=== PATIENT | female | born 1955 | race African-American/Black ===

== ENCOUNTER 2019-02-01 04:44 | Day surgery (SDC) | payer OTHER ==
[2019-01-30 13:09] VITALS: BMI 29.5
[2019-02-01] MEDS ORDERED: BUPIVACAINE HCL/PF 0.5% (5 MG/ML) 30 ML VIAL IJ ONE ×2 (07:18→08:34)
[2019-02-01] MEDS ORDERED: LIDOCAINE HCL 1%, 10 MG/ML (20ML VIAL) ONE (07:18)
[2019-02-01] MEDS ORDERED: PROPOFOL 20 ML ONE ×2 (07:23)
[2019-02-01] MEDS ORDERED: MIDAZOLAM HCL 2 MG/2 ML SINGLE DOSE VIAL ONE (07:23)
[2019-02-01] MEDS ORDERED: SUCCINYLCHOLINE CHLORIDE 200 MG/10 ML SYRINGE ONE (07:23)
[2019-02-01] MEDS ORDERED: ceFAZolin SODIUM 1 GM VIAL ONE (08:19)
--- NOTE | 2019-02-01 08:20 | HP ---
[facility] - Chief Complaint Chief Complaint: left index finger mass - Past Medical History Allergies/Adverse Reactions: Allergies Allergy/AdvReac Type Severity Reaction Status Date / Time No Known Allergies Allergy Verified 02/01/19 06:31 - Current Medications Current Medications: Home Medications Medication Instructions Recorded Atorvastatin Ca [Lipitor] 20 mg PO DAILY 01/30/19 Hydrocodone/Acetaminophen 1 each PO Q6H #10 tablet MDD 4 02/01/19 [Hydrocodone-Acetamin 5-325 mg] Multivitamin [One-Daily 1 each PO DAILY 02/01/19 Multi-Vitamin] Barton-3S/Dha/Epa/Fish Oil [Fish 1 each PO DAILY 02/01/19 Oil Barton-3 Softgel] Satellite Physical Exam - Physical Examination Vital Signs: Vital Signs Period Temp Pulse Resp BP Sys/Rodriguez Pulse Ox Last 24 Hr 97.7 F-97.7 F 64-64 20-20 136-136/74-74 100 General Appearance: Well Nourished, Well Developed, Alert & Oriented x3 ENT: Clear Lung: Normal air movement Heart: Regular rate & rhythm Extremities: Other (left index finger- + mass, nvi) Neurological: Intact, Alert, Oriented Satellite Impression/Plan - Impression/Plan Impression: left index finger mass Operative Procedure: left index finger mass excision Date to be Performed: 02/01/19
[2019-02-01] MEDS ORDERED: ceFAZolin SODIUM 1 GM VIAL IVPB ONE (08:21)
[2019-02-01] MEDS ORDERED: LIDOCAINE HCL 1%, 10 MG/ML (20ML VIAL) NR ONE (08:33)
--- NOTE | 2019-02-01 08:55 | OP ---
Operative Note - Note: Operative Date: 02/01/19 Pre-Operative Diagnosis: left index finger mass Operation: left index finger mass excision Post-Operative Diagnosis: Same as Pre-op Surgeon: Charly Montgomery Anesthesiologist/LODGE OFFICER: Butch Burton Anesthesia: Local, MAC Specimens Removed: mass, left index finger Estimated Blood Loss (mls): 0 Drains, Volume Out (mls): 0 Blood Volume Replaced (mls): 0 Fluid Volume Replaced (mls): 300 Operative Report Dictated: Yes
[2019-02-01 09:13] VITALS: TEMP 97.4
[2019-02-01] MEDS ORDERED: oxyCODONE HCL 5 MG TABLET PO PRN (12:03)
[2019-02-01] MEDS ORDERED: ONDANSETRON 4 MG/2 ML VIAL IVPUSH PRN (12:03)
[2019-02-01] MEDS ORDERED: LACTATED RINGERS SOLUTION 1,000 ML IV SCH (12:15)
--- NOTE | 2019-02-01 13:57 | OP ---
DATE OF OPERATION: 02/01/2019 PREOPERATIVE DIAGNOSIS: Left index finger mass, likely ganglion cyst. POSTOPERATIVE DIAGNOSIS: Left index finger mass, likely ganglion cyst. PROCEDURE: Excision, mass, left index finger. SURGEON: Charly Major MD ASSISTANTS: None. ANESTHESIA: MARIN SearsMD: MAC anesthesia, local injection of 10 mL 0.5% Marcaine and 1% lidocaine mix. DRAINS: None. COMPLICATIONS: None. SPECIMEN: Mass, left index finger, likely ganglion cyst. BLOOD LOSS: None. BLOOD GIVEN: None. FLUID REPLACEMENT: 300 mL. This is a 63-year-old female with a preoperative diagnosis of a mass on the ulnar aspect of her left index finger. After extensive preoperative discussions about the potential risks, complications, alternatives, and benefits of surgery versus no-surgical treatment, the patient elected to undergo this procedure. She understands that this mass may recur at this or other locations. She may need additional treatment. The patient was brought to the operating room, peripheral IV placed, IV sedation given, 1g of IV Ancef was given. MAC anesthesia was induced. The left upper extremity was prepped and draped in sterile fashion. A midaxial incision was marked out with a marking pen and a metacarpal head block was done using 10 mL 0.5% Marcaine and 1% lidocaine mix. The entire case was done under 3.8 loupe magnification. The left upper extremity was then elevated, exsanguinated with an Esmarch bandage, and the tourniquet inflated to 250 mm Mercury. A fresh number 15 scalpel blade was utilized to cut down through the skin. Circumferential dissection was done with a sharp-tip curved iris scissors. The mass popped at one point and classic ganglion cyst-like fluid was removed. The ganglion cyst was well circumscribed and right underneath the skin. I was able to dissect it free with a fresh number 15 scalpel blade free of the subcutaneous tissue. All crossing neurovascular structures were identified and preserved. It was decapitated at its base. It was adherent to the bone/distal phalanx. The area was copiously irrigated and washed out. I did not see or feel any abnormal tissue at this point. Closure was done with single interrupted 4-0 nylon sutures. The area was then washed and dried and covered with Xeroform gauze, 4 x 4 gauze, fluffs between the fingers, Webril, and Coban. The tourniquet was taken down after a total tourniquet time of 10 minutes. There were no complications during the case. The patient tolerated the procedure quite well, was brought to the ambulatory recovery in stable condition. CHARLY MAJOR M.D. [id number]
[2019-02-01 15:38] VITALS: BP 137/85; PULSE 76
--- NOTE | 2019-02-02 18:38 | PATH ---
Surgical Pathology Report Patient Name: KIMBERLY YOUNG [facility]. Rec. #: [id number] /Age/Gender: 1955 (Age: 63) / F Account: [id number] Location: [facility] Taken: 02/01/2019 Received: 02/01/2019 Reported: 02/02/2019 Physicians: Charly Montgomery M.D. Specimen(s) Received MASS OF LEFT INDEX FINGER Clinical History Cyst mass left index finger Final Diagnosis LEFT INDEX FINGER MASS, EXCISION: CONSISTENT WITH GANGLION CYST. Electronically Signed Shirin Posada M.D. Gross Description Received in formalin labeled "left index finger mass," is a 0.8 x 0.5 x 0.1 cm malcolm portion of soft tissue. The specimen is bisected and entirely submitted in one cassette. /02/01/201902/01/2019
== END 2019-02-01 10:35 | disposition home or self-care (01) ==
LOC: JASU-SURG 04:44
PROVIDERS: ATTEND Orthopaedic Surgery
PROC: 0LB80ZZ Excision of Left Hand Tendon, Open Approach (ICD-10-PCS; principal; 2019-02-01 08:00)
DX: M67.442 Ganglion, left hand (principal)
CPT/HCPCS: 88304-TC

== ENCOUNTER → 2019-02-05 | Day surgery (SDC) | payer OTHER ==
--- NOTE | 2019-02-08 13:07 | PATH ---
Cytology Non-Gynecological Report Patient Name: KIMBERLY YOUNG [facility]. Rec. #: [id number] /Age/Gender: 1955 (Age: 63) / F Account: [id number] Location: RADIOLOGY INTER Taken: 02/05/2019 Received: 02/05/2019 Reported: 02/08/2019 Physicians: Jean Claude Benitez M.D. Specimen(s) Received LEFT THYROID FNA Clinical History Left thyroid nodule, 1.64 x 1.21 x 1.34 cm Final Diagnosis THYROID, LEFT, FINE NEEDLE ASPIRATION: SATISFACTORY FOR EVALUATION. BETHESDA CLASS II: BENIGN. CYTOLOGIC FINDINGS SHOW A BENIGN FOLLICULAR NODULE WITH FEATURES CONSISTENT WITH CHRONIC LYMPHOCYTIC THYROIDITIS. SCATTERED FOLLICULAR CELLS DISPERSED SMALL CLUSTERS AND AGGREGATES IN A BACKGROUND OF NUMEROUS LYMPHOCYTES, LYMPHOHISTIOCYTIC AGGREGATES, AND LYMPHOID TANGLES PRESENT. Comment: Suggest clinical/radiologic and serologic correlation. Electronically Signed Aysha Cruz M.D. Gross Description Received are eight direct smears, four of which are air-dried and Diff-Quik stained, and four of which are alcohol fixed and Pap stained. Also received is 20 ml of bloody formalin from which one cellblock is prepared.
== END | disposition home or self-care (01) ==
LOC: JRADIR 09:37
PROVIDERS: ATTEND Internal Medicine Endocrinology, Diabetes & Metabolism
PROC: 0G9G3ZX Drainage of Left Thyroid Gland Lobe, Percutaneous Approach, Diagnostic (ICD-10-PCS; principal; 2019-02-05)
DX: E04.1 Nontoxic single thyroid nodule (principal)
CPT/HCPCS: 10005; 76942

== ENCOUNTER → 2019-02-15 | Day surgery (SDC) | payer OTHER ==
--- NOTE | 2019-02-19 14:35 | PATH ---
Cytology Non-Gynecological Report Patient Name: KIMBERLY YOUNG [facility]. Rec. #: [id number] /Age/Gender: 1955 (Age: 63) / F Account: [id number] Location: RADIOLOGY INTER Taken: 02/15/2019 Received: 02/15/2019 Reported: 02/19/2019 Physicians: Chano Ennis M.D. Specimen(s) Received THYROID FNA Clinical History Right lobe, 2.13 x 1.35 x 2.04 cm Final Diagnosis THYROID, RIGHT, FINE NEEDLE ASPIRATION: SATISFACTORY FOR EVALUATION. BETHESDA CLASS II: BENIGN. CYTOLOGIC FINDINGS SHOW A BENIGN FOLLICULAR NODULE WITH FEATURES CONSISTENT WITH CHRONIC LYMPHOCYTIC THYROIDITIS. SMALL FOLLICULAR CELLS DISPERSED FEW CLUSTERS IN A BACKGROUND OF LYMPHOCYTES, LYMPHOID TANGLES, AND COLLOID PRESENT. Comment: Suggest clinical/radiologic and serologic correlation. Prior cytology material is noted. Electronically Signed Aysha Cruz M.D. Gross Description Received are eight direct smears, four of which are air-dried and Diff-Quik stained, and four of which are alcohol fixed and Pap stained. Also received is 20 ml of bloody formalin from which one cellblock is prepared.
== END | disposition home or self-care (01) ==
LOC: JRADIR 09:40
PROVIDERS: ATTEND Internal Medicine Endocrinology, Diabetes & Metabolism
PROC: 0G9K3ZX Drainage of Thyroid Gland, Percutaneous Approach, Diagnostic (ICD-10-PCS; principal; 2019-02-15)
DX: E04.1 Nontoxic single thyroid nodule (principal)
CPT/HCPCS: 76942; 88173; 88305-TC